=== PATIENT | female | born 1970 | race Two or more races ===

== ENCOUNTER 2019-10-29 05:41 | Day surgery (SDC) | payer OTHER ==
[2019-10-29] MEDS ORDERED: NEXIUM 24HR20 MG PO (08:49)
== END 2019-10-29 10:10 | disposition home or self-care (01) ==
LOC: AMB-ENDOS 05:41 → ADM 15:00 → AMB-ENDOS 15:00
DX: D13.1 Benign neoplasm of stomach (principal); K29.50 Unspecified chronic gastritis without bleeding; K44.9 Diaphragmatic hernia without obstruction or gangrene

== ENCOUNTER 2022-10-29 17:45 | Emergency (ER) | payer OTHER ==
[~2022-10-29] VITALS: Ht 152.4 cm; Wt 111.1 kg
[~2022-10-29 17:45] MED LIST: NEXIUM 24HR20 MG PO
== END 2022-10-29 22:19 | disposition home or self-care (01) ==
LOC: ER 17:45
DX: M79.644 Pain in right finger(s) (principal)